=== PATIENT | male | born 1940 | race Caucasian/White ===

== ENCOUNTER 2018-12-26 20:44 | Emergency (ER) | payer MEDICARE, BC, OTHER ==
[~2018-12-26] VITALS: Ht 177.8 cm; Wt 96.8 kg
[2018-12-26] MEDS ORDERED: SERT-141 PO (21:06)
[2018-12-26] MEDS ORDERED: ATOR1TAB21 PO (21:06)
[2018-12-26] MEDS ORDERED: AZAT50TA2 PO (21:06)
[2018-12-26] MEDS ORDERED: GLIP10TA PO (21:06)
[2018-12-26 21:09] VITALS: BP 180/79
== END 2018-12-26 22:34 | disposition home or self-care (01) ==
LOC: M ED 20:44
DX: F03.90 Unspecified dementia, unspecified severity, without behavioral disturbance, psychotic disturbance, mood disturbance, and anxiety (principal); R41.82 Altered mental status, unspecified; Z88.2 Allergy status to sulfonamides; Z79.899 Other long term (current) drug therapy